=== PATIENT | male | born 1995 | race Hispanic/Latino ===

== ENCOUNTER 2019-09-22 20:39 | Emergency (ER) | payer SELFPAY ==
[2019-09-22] MEDS ORDERED: ONDANSETRON 4 MG/2 ML VIAL ONE (22:08)
[2019-09-22] MEDS ORDERED: NA CHLORIDE 0.9% 1,000 ML ONE (22:08)
[2019-09-22] MEDS ORDERED: MORPHINE 4 MG/ML SYR ONE (22:08)
[2019-09-22 22:27] LABS: Absolute Lymphocytes (CBC) 1.1 K/uL (0.7-4.9); Basophils % 0.1 % (0-1.3); Hematocrit 44.8 % (39.6-49.0); MPV 10.2 fL (7.6-11.3); RBC Red Blood Cell Count 5.11 M/uL (4.33-5.43)
[2019-09-22 22:30] LABS: BUN Blood Urea Nitrogen 20 mg/dL (7-18); Bicarbonate 24 mmol/L (21-32); Glucose Level 124 mg/dL (74-106); Potassium 3.7 mmol/L (3.5-5.1); Sodium Level 135 mmol/L (136-145)
--- NOTE | 2019-09-22 23:27 | ER ---
Nurse's Notes [facility] Name: Guanaco Worrell Age: 24 yrs Sex: Male : 1995 Arrival Date: 09/22/2019 Time: 20:50 Bed 23 Private MD: Diagnosis: S/P Brain trauma. Worsening headache, nausea. 2 new discrete mass lesions within the right frontal and temporal lobes Presentation: 09/22 21:08 Presenting complaint: Patient states: Headache x 2 days, Reports Nausea and dizziness, ca1 Denies vomiting and fever. Reports a skull fracture, admitted in the hospital on last week and discharged yesterday with antibiotics and other meds. Transition of care: patient was not received from another setting of care. Onset of symptoms was September 22, 2019. Risk Assessment: Do you want to hurt yourself or someone else? Patient reports no desire to harm self or others. Initial Sepsis Screen: Does the patient meet any 2 criteria? No. Patient's initial sepsis screen is negative. Does the patient have a suspected source of infection? No. Patient's initial sepsis screen is negative. Care prior to arrival: None. 21:08 Method Of Arrival: Ambulatory ca1 21:08 Acuity: DIAMOND 3 ca1 Historical: - Allergies: 21:23 No Known Allergies; ca1 - PMHx: 21:23 None; ca1 - PSHx: 21:23 None; ca1 - Immunization history:: Adult Immunizations up to date, Flu vaccine is not up to date. - Coronavirus screen:: The patient has NOT traveled to [place], [place], or [place] in the past 14 days. The patient has NOT had contact with known/suspected case of Coronavirus?. - Social history:: Smoking status: Patient reports the use of cigarette tobacco products, denies chronic smoking, but will smoke occasionally. - Ebola Screening: : Patient negative for fever greater than or equal to 101.5 degrees Fahrenheit, and additional compatible Ebola Virus Disease symptoms Patient denies exposure to infectious person Patient denies travel to an Ebola-affected area in the 21 days before illness onset No symptoms or risks identified at this time. Screenin:30 Abuse screen: Denies threats or abuse. Denies injuries from another. Nutritional wh screening: No deficits noted. Tuberculosis screening: No symptoms or risk factors identified. Fall Risk None identified. Assessment: 21:10 General: Appears in no apparent distress. Behavior is calm, cooperative, appropriate wh for age. Pain: Complains of pain in head Pain does not radiate. Pain currently is 8 out of 10 on a pain scale. Pain began 1 day ago. Neuro: Level of Consciousness is awake, alert, obeys commands, Oriented to person, place, time, situation, Appropriate for age Referral Coordinator are equal bilaterally Moves all extremities. Gait is steady, Speech is normal, Facial symmetry appears normal, Pupils are PERRLA, Reports headache skull fracture. Cardiovascular: Heart tones S1 S2 Capillary refill < 3 seconds. Respiratory: Airway is patent Respiratory effort is even, unlabored, Respiratory pattern is regular, symmetrical, Breath sounds are clear bilaterally. GI: Abdomen is flat, non-distended. : No signs and/or symptoms were reported regarding the genitourinary system. EENT: No signs and/or symptoms were reported regarding the EENT system. Derm: Skin is intact, is healthy with good turgor, Skin is pink, warm \T\ dry. normal. Musculoskeletal: Circulation, motion, and sensation intact. 22:23 Reassessment: Patient appears in no apparent distress at this time. No changes from previously documented assessment. Patient and/or family updated on plan of care and expected duration. Pain level reassessed. Patient is alert, oriented x 3, equal unlabored respirations, skin warm/dry/pink. 23:39 Reassessment: Patient appears in no apparent distress at this time. No changes from previously documented assessment. Patient and/or family updated on plan of care and expected duration. Pain level reassessed. Patient is alert, oriented x 3, equal unlabored respirations, skin warm/dry/pink. Report Called to Luanne Paulino RN. 09/23 00:30 Reassessment: Patient appears in no apparent distress at this time. No changes from previously documented assessment. Patient and/or family updated on plan of care and expected duration. Pain level reassessed. Patient is alert, oriented x 3, equal unlabored respirations, skin warm/dry/pink. Medical Records and discharge instructions together with the CD Scans were returned to the mother. Vital Signs: 09/22 21:08 BP 141 / 87; Pulse 54; Resp 19 S; Temp 98.2(O); Pulse Ox 100% on R/A; Weight 77.56 kg ca1 (R); Height 5 ft. 6 in. (167.64 cm) (R); Pain 6/10; 22:29 BP 129 / 84; Pulse 45; Resp 16; Pulse Ox 96% on R/A; wh 23:40 BP 124 / 75; Pulse 75; Resp 18; Pulse Ox 96% on R/A; 02 00:31 BP 126 / 73; Pulse 44; Resp 18; Temp 98.4; Pulse Ox 96% ; 09/22 21:08 Body Mass Index 27.60 (77.56 kg, 167.64 cm) [facility] ED Course: 09/22 20:50 Patient arrived in ED. na 21:08 Mendoza Guthrie MD is Attending Physician. pkl 21:08 Arm band placed on right wrist. Antipyretics given from triage as ordered by an ER [facility] provider. 21:16 Gabriel Huang is Primary Nurse. 21:22 Triage completed. [facility] 21:30 Patient has correct armband on for positive identification. Placed in gown. Bed in low wh position. Call light in reach. Side rails up X 1. environmental monitoring specialist on. Pulse ox on. NIBP on. 21:30 EKG done, by ED staff, reviewed by Mendoza Guthrie MD. 21:45 Inserted saline lock: 20 gauge in right antecubital area, using aseptic technique. Blood collected. 02 00:31 No provider procedures requiring assistance completed. Patient transferred, IV remains in place. 05:59 CT Head Brain wo Cont In Process Unspecified. EDMS Administered Medications: 09/22 22:05 Drug: NS 0.9% 1000 ml Route: IV; Rate: 125 ml/hr; Site: right antecubital; 09/23 00:33 Follow up: Response: No adverse reaction; IV Status: Infusion continued upon transfer 09/22 22:07 Drug: morphine 4 mg Route: IVP; Site: right antecubital; 09/23 00:32 Follow up: Response: No adverse reaction; Pain is decreased; RASS: Alert and Calm (0) 09/22 22:09 Drug: Zofran 4 mg Route: IVP; Site: right antecubital; 09/23 00:32 Follow up: Response: No adverse reaction; Nausea is decreased Outcome: 09/22 23:26 ER care complete, transfer ordered by MD. cardona 09/23 00:31 Transferred by ground EMS to [facility], Transfer form completed. Note: Report Called to Luanne Paulino RN and [facility] Condition: stable Instructed on the need for transfer. 00:33 Patient left the ED. Signatures: Dispatcher [employer] EDMendoza Tang MD MD pkl Anderson, Nyra na Habalo, Winsy Selam De La Paz RN RN ca1 Corrections: (The following items were deleted from the chart) 09/22 21:24 21:23 BP 141 / 87; Pulse 54bpm; Resp 19bpm; Spontaneous; Pulse Ox 100% RA; Temp 98.2F ca1 Oral; 77.56 kg Reported; Height 5 ft. 6 in. Reported; BMI: 27.6; Pain 6/10; ca1
--- NOTE | 2019-09-22 23:28 | EDPHYS ---
Physician Documentation [facility] Name: Guanaco Worrell Age: 24 yrs Sex: Male : 1995 Arrival Date: 09/22/2019 Time: 20:50 Bed 23 Private MD: ED Physician Mendoza Guthrie HPI: 09/22 22:12 This 24 yrs old Male presents to ER via Ambulatory with complaints of Neck pkl Pain. 22:12 The patient complains of pain to the forehead and right yarsani. The patient describes pkl the headache as constant. Onset: The symptoms/episode began/occurred 2 day(s) ago. Associated signs and symptoms: Pertinent positives: dizziness, nausea. Patient was transferred by helicopter to [facility] in [place] after falling off a motorized skateboard. Patient sustained fracture right temporal bone. Cerebral contusion. Subdural hematoma. Partial facial nerve palsy. Patient discharged yesterday. Mother brought patient home last night, with instructions to follow up with Neurosurgery and ENT in [place]. Historical: - Allergies: 21:23 No Known Allergies; ca1 - PMHx: 21:23 None; ca1 - PSHx: 21:23 None; ca1 - Immunization history:: Adult Immunizations up to date, Flu vaccine is not up to date. - Coronavirus screen:: The patient has NOT traveled to [place], [place], or [place] in the past 14 days. The patient has NOT had contact with known/suspected case of Coronavirus?. - Social history:: Smoking status: Patient reports the use of cigarette tobacco products, denies chronic smoking, but will smoke occasionally. - Ebola Screening: : Patient negative for fever greater than or equal to 101.5 degrees Fahrenheit, and additional compatible Ebola Virus Disease symptoms Patient denies exposure to infectious person Patient denies travel to an Ebola-affected area in the 21 days before illness onset No symptoms or risks identified at this time. ROS: 22:12 Eyes: Negative for injury, pain, redness, and discharge, ENT: Negative for injury, pkl pain, and discharge, Neck: Negative for injury, pain, and swelling, Cardiovascular: Negative for chest pain, palpitations, and edema, Respiratory: Negative for shortness of breath, cough, wheezing, and pleuritic chest pain, Abdomen/GI: Negative for abdominal pain, nausea, vomiting, diarrhea, and constipation, Back: Negative for injury and pain, : Negative for injury, bleeding, discharge, and swelling, MS/Extremity: Negative for injury and deformity, Skin: Negative for injury, rash, and discoloration. 22:12 Neuro: Positive for dizziness, increasing headache and nausea. Exam: 22:12 Head/Face: Normocephalic, atraumatic. Eyes: Pupils equal round and reactive to light, pkl extra-ocular motions intact. Lids and lashes normal. Conjunctiva and sclera are non-icteric and not injected. Cornea within normal limits. Periorbital areas with no swelling, redness, or edema. ENT: Nares patent. No nasal discharge, no septal abnormalities noted. Tympanic membranes are normal and external auditory canals are clear. Oropharynx with no redness, swelling, or masses, exudates, or evidence of obstruction, uvula midline. Mucous membranes moist. Neck: Trachea midline, no thyromegaly or masses palpated, and no cervical lymphadenopathy. Supple, full range of motion without nuchal rigidity, or vertebral point tenderness. No Meningismus. Chest/axilla: Normal chest wall appearance and motion. Nontender with no deformity. No lesions are appreciated. Cardiovascular: Regular rate and rhythm with a normal S1 and S2. No gallops, murmurs, or rubs. Normal PMI, no JVD. No pulse deficits. Respiratory: Lungs have equal breath sounds bilaterally, clear to auscultation and percussion. No rales, rhonchi or wheezes noted. No increased work of breathing, no retractions or nasal flaring. Abdomen/GI: Soft, non-tender, with normal bowel sounds. No distension or tympany. No guarding or rebound. No evidence of tenderness throughout. Back: No spinal tenderness. No costovertebral tenderness. Full range of motion. Skin: Warm, dry with normal turgor. Normal color with no rashes, no lesions, and no evidence of cellulitis. MS/ Extremity: Pulses equal, no cyanosis. Neurovascular intact. Full, normal range of motion. 22:12 Neuro: Orientation: appropriate for stated age, Mentation: is normal, Cranial nerves: grossly normal, Motor: is normal. Vital Signs: 21:08 BP 141 / 87; Pulse 54; Resp 19 S; Temp 98.2(O); Pulse Ox 100% on R/A; Weight 77.56 kg ca1 (R); Height 5 ft. 6 in. (167.64 cm) (R); Pain 6/10; 22:29 BP 129 / 84; Pulse 45; Resp 16; Pulse Ox 96% on R/A; 23:40 BP 124 / 75; Pulse 75; Resp 18; Pulse Ox 96% on R/A; 09/23 00:31 BP 126 / 73; Pulse 44; Resp 18; Temp 98.4; Pulse Ox 96% ; 09/22 21:08 Body Mass Index 27.60 (77.56 kg, 167.64 cm) ca1 MDM: 09/22 21:08 Patient medically screened. pkl 23:16 Data reviewed: vital signs, nurses notes, lab test result(s), radiologic studies, CT pkl scan. 09/22 21:51 Order name: CBC with Diff pkl 09/22 21:51 Order name: Chem 7 pkl 09/22 21:54 Order name: CT Head Brain wo Cont pkl 09/22 22:29 Order name: CBC with Automated Diff; Complete Time: 22:44 EDMS 09/22 22:30 Order name: Basic Metabolic Panel; Complete Time: 22:44 EDMS Administered Medications: 22:05 Drug: NS 0.9% 1000 ml Route: IV; Rate: 125 ml/hr; Site: right antecubital; 09/23 00:33 Follow up: Response: No adverse reaction; IV Status: Infusion continued upon transfer 09/22 22:07 Drug: morphine 4 mg Route: IVP; Site: right antecubital; 09/23 00:32 Follow up: Response: No adverse reaction; Pain is decreased; RASS: Alert and Calm (0) 09/22 22:09 Drug: Zofran 4 mg Route: IVP; Site: right antecubital; 09/23 00:32 Follow up: Response: No adverse reaction; Nausea is decreased Disposition: 09/22/19 23:26 Transfer ordered to [facility]. Diagnosis is S/P Brain trauma. Worsening headache, nausea. 2 new discrete mass lesions within the right frontal and temporal lobes. - Reason for transfer: Higher level of care. - Accepting physician is Dr Michele Child. - Condition is Stable. - Problem is new. - Symptoms have worsened. Signatures: Dispatcher [employer] EDMS Guthrie, Pin, MD MD pkl Fabioluz Gabriel wh Ana Cristina, Selam RN RN ca1 Corrections: (The following items were deleted from the chart) 00:33 09/22 23:26 09/22/2019 23:26 Transfer ordered to [facility]. Diagnosis is S/P Brain trauma. Worsening headache, nausea. 2 new discrete mass lesions within the right frontal and temporal lobes. Reason for transfer: Higher level of care. Accepting physician is Dr Michele Child. Condition is Stable. Problem is new. Symptoms have worsened. pkl
[2019-09-23 00:52] VITALS: O2SAT 96
[2019-09-23 00:55] VITALS: BP 126/73; TEMP 98.4
--- NOTE | 2019-09-23 10:16 | RAD REPORT ---
EXAM DESCRIPTION: Head Brain Wo Cont CLINICAL HISTORY: 24 years Male, HEADACHE TECHNIQUE: 5 mm axial images were obtained along with 3 mm reformatted coronal and sagittal images. This exam was performed according to our departmental dose-optimization program, which includes autom ated exposure control, adjustment of the mA and/or kV according to patient size and/or use of iterati ve reconstruction technique. COMPARISON: None. FINDINGS: No acute abnormal extracerebral fluid collections are demonstrated. The cortical sulci, ventricles, and cisterns are within normal limits. There is a mass lesion within the right temporal lobe which multiple areas of increased density likel y representing calcifications. The mass measures 6.6 x 5.3 x 4.2 cm. There is a similar-appearing mass in the base of the right frontal lobe measuring 2.2 x 2.1 x 3.0 cm. Further evaluation with a contrast-enhanced MRI recommended. The visualized portions of the paranasal sinuses and mastoid air cells are clear. There is a moderate-sized scalp hematoma posteriorly along the midline and on the right. IMPRESSION: 1. 2 discrete mass lesions identified within the right frontal and temporal lobes. Neopl asms should be considered. Further evaluation with a contrast-enhanced MRI recommended. 2. Moderate-sized scalp hematoma. Electronically signed by: Allan Ledbetter MD 09/22/2019 10:38 PM BUSINESS INTELLIGENCE ENGINEER Due to temporary technical issues with the PACS/Fluency reporting system, reports are being signed by the in house radiologist as a courtesy to ensure prompt reporting. The interpreting radiologist is f ully responsible for the content of the report.
--- NOTE | 2019-09-23 12:27 | EKG ---
Test Date: 2019-09-22 Test Time: 21:26:32 Cigar Head Puncher: MICHELLE MEASUREMENT RESULTS: Intervals: Rate: 46 ME: 134 QRSD: 98 QT: 466 QTc: 407 Grant: P: 76 ME: 134 QRS: 87 T: 39 INTERPRETIVE STATEMENTS: Marked sinus bradycardia with sinus arrhythmia Abnormal ECG No previous ECG available for comparison Electronically Signed On 09-23-19 12:26:26 DOCTOR OF PHARMACY by Terrell Acharya
== END 2019-09-23 00:33 | disposition short-term general hospital (02) ==
LOC: ER 20:39
DX: R11.0 Nausea (principal); G93.9 Disorder of brain, unspecified; Z87.820 Personal history of traumatic brain injury; Z72.0 Tobacco use
CPT/HCPCS: 36415; 70450; 80048; 85025; 93005; 96361; 96374; 96375; 99285; J2405; J7030

== ENCOUNTER 2020-10-12 16:27 | Emergency (ER) | payer OTHER, SELFPAY ==
--- OUTSIDE RECORDS SUMMARY | 2020-10-12 16:32 | XMS REPORT | Continuity of Care Document ---
:1995 Author Organization [facility] t Address [address] [place] [address] Care Team Providers Name Role Phone Van Leslie Attending Clinician Júnior Child Admitting Clinician Problems Condition Condition Condition Status Onset Resolution Last Treating Co mments Source Name Details Category Date Date Treatment Clinician Date SUBDURAL Diagnosis Active 2019-10-01 M emoria HEMATOMA 2-03 21:45:00 l SUBDURAL 00:00: Samuel n HEMATOMA 00 Active 2019 [facility] HEADACHE Diagnosis Active 2019-10-01 M emoria 21:45:00 l HEADACHE Samuel n Active [facility] Allergies, Adverse Reactions, Alerts Allergy Allergy Status Severity Reaction(s) Onset Inactive Treating Comm ents Source Name Type Date Date Clinician No Known No Known Active Orlinori a Medicati Medicati l on on Juan Allergie Allergie s s Social History Social Habit Start Date Stop Date Quantity Comments Source Social History 2019-09-24 2019-09-24 [facility] 00:25:02 00:25:02 Medications Ordered Filled Start Stop Current Ordering Indication Dosage Frequency Signature Comments Components Source Medication Medication Date Date Medication? Clinician (SIG) Name Name sennosides, Yes 8.6 mg = 1 Memoria SHELTER 8.6 MG 2-07 tab, PO, l Oral Tablet 15:34: Q12H, X 7 H ermann 00 day, # 14 tab, 0 Refill(s) tramadol Yes 50 mg = 1 Murtaza denise hydrochlori 2-07 tab, PO, l de 50 MG 15:34: Q6H, PRN Yin nn Oral Tablet 00 Pain Score 7-10, X 10 day, # 30 tab, 0 Refill(s) Ciprofloxac Yes 4 drp, Murtaza denise in 3 MG/ML 2-07 RIGHT EAR, l / 15:34: BID, X 7 Juan Dexamethaso 00 day, # 8 ne 1 MG/ML mL, 0 Otic Refill(s) Suspension [Ciprodex] Docusate Yes 100 mg = 1 Mem oria Sodium 100 2-07 cap, PO, l MG Oral 15:34: Q12H, # 14 Herm paco Capsule 00 cap, 0 Refill(s) Levetiracet Yes 500 mg = 1 Memoria am 500 MG 2-07 tab, PO, l Oral Tablet 15:34: Q12H, # 8 H ermann 00 tab, 0 Refill(s) Sodium 0 No 3 gm, 3 Memoria Chloride 2-06 tab, l 1000 MG 19:10: Route: PO, Herm paco Oral Tablet 00 Drug form: TAB, Q8H-05, Dosing Weight 77.727, kg, Start date: 09/25/19 13:10:00 DINING ROOM HELPER, Duration: 30 day, Stop date: 10/25/19 13:00:00 DINING ROOM HELPER, 0 NS 1,000 mL No 1,000 mL, M emoria 09-25 Rate: 75 l 19:00: ml/hr, Juan 00 Infuse over: 13.3 hr, Route: IV, Dosing Weight 77.727 kg, Total Volume: 1,000, Start date: 09/25/19 13:00:00 DINING ROOM HELPER, Duration: 30 day, Stop date: 10/25/19 12:59:00 DINING ROOM HELPER, 1.92, m2, 0 heparin 0 No Notes: Memoria sodium, 2-05 porcine l porcine 22:00: heparin Brick 2500 UNT/ML 00 Injectable Solution Water 1000 0 No 914.5 mL, Me moria MG/ML 2 Rate: 75 l Injectable 20:57: ml/hr, Yin nn Solution 00 Infuse over: 13.3 hr, Route: IV, Dosing Weight 77.727 kg, Total Volume: 1,000, Start date: 09/24/19 14:57:00 DINING ROOM HELPER, Duration: 30 day, Stop date: 10/24/19 14:56:00 DINING ROOM HELPER, For IMU and ICU use only. See Order Comments!! , 1.92, m2, 0 Compazine 2019-0 No Notes: Memori a 2-05 (Same as: l 17:36: Compazine) Diphenhydra 2019-0 No Notes: Murtaza denise mine 2-05 (Same as: l 17:36: Benadryl) Compazine 0 No 10 mg, Memori a 2-05 Route: IM, l 17:34: Drug form: INJ, ONCE, Dosing Weight 77.727, kg, Start date: 09/24/19 11:34:00 DINING ROOM HELPER, Stop date: 09/24/19 11:34:00 DINING ROOM HELPER Ketorolac No 15 mg, 1 Murtaza denise 2-05 mL, Route: l 17:34: IVP, Drug form: INJ, ONCE, Dosing Weight 77.727, kg, Start date: 09/24/19 11:34:00 DINING ROOM HELPER, Stop date: 09/24/19 11:34:00 DINING ROOM HELPER, 0 Magnesium No Notes: Memori a Sulfate 2-05 WASTE: F/P l 17:34: - Sink; E Juan 00 - Municipal Trash Bin Miralax 0 No Notes: Memoria 2-05 Dissolve l 15:00: in 8 oz of water or juice. (Same as: Miralax) Lidocaine No 1 patch, Murtaza denise 0.05 MG/MG 2-05 Route: l Transdermal 15:00: TOP, Samuel n Patch 00 Daily, Drug form: FILM, Start date: 09/24/19 9:00:00 DINING ROOM HELPER, Duration: 30 day, Stop date: 10/23/19 9:00:00 DINING ROOM HELPER remove 0 No Notes: Memoria patch 2-05 Remove l 03:00: patch 12 Juan 00 hours after applicatio n each day. Compazine 0 No Notes: Memori a 2-05 (Same as: l 00:45: Compazine) tramadol 0 No 100 mg, 2 Murtaza denise hydrochlori 2-05 tab, l de 50 MG 00:41: Route: PO, Her dumont Oral Tablet 00 Drug form: TAB, Q6H, Dosing Weight 77.727, kg, PRN Pain Score 7-10, Priority: NOW, Start date: 09/23/19 18:41:00 DINING ROOM HELPER, Duration: 30 day, Stop date: 10/23/19 18:40:00 DINING ROOM HELPER, 0 Water 1000 No 914.5 mL, Me moria MG/ML 09-24 Rate: 50 l Injectable 00:40: ml/hr, Yin nn Solution 00 Infuse over: 20 hr, Route: IV, Dosing Weight 77.727 kg, Total Volume: 1,000, Start date: 09/23/19 18:40:00 DINING ROOM HELPER, Duration: 30 day, Stop date: 10/23/19 18:39:00 DINING ROOM HELPER, For IMU and ICU use only. See Order Comments!! , 1.92, m2, 0 Ciprofloxac No Notes: Murtaza denise in 3 MG/ML - (Same As: 23:00: Ciprodex) Brick Dexamethaso 00 ne 1 MG/ML Otic Suspension [Ciprodex] Levetiracet No 500 mg, 1 M emoria am 2-04 tab, l 17:00: Route: PO, Brick 00 Drug form: TAB, Q12H, kg, Start date: 09/23/19 11:00:00 DINING ROOM HELPER, Duration: 30 day, Stop date: 10/23/19 9:00:00 DINING ROOM HELPER, 0 Levetiracet No Notes: Murtaza denise am 2-04 Same as l 15:00: Keppra Juan Mix with 100 mL NS, LR or D5W MEDICATION WASTE Product Size: 500 mg Product Wasted: ___ mg Docusate No Notes: Memoria 2-04 (Same as: l 15:00: Colace) Juan (Do Not Crush) sennosides, No Notes: Murtaza denise SHELTER 2-04 (Same as: l 15:00: Senokot) Brick 00 Lidocaine No Notes: Memori a 0.05 MG/MG 2-04 Apply only l Transdermal 15:00: once for He rmann Patch 00 up to 12 hours in a 24-hour period (12 hours on and 12 hours off). (Same as: Lidoderm) "Remove old patch before applicatio n of new patch" Saline No Notes: Memoria Flush 0.9% 2-04 Same as: l 15:00: BD Posiflush Sterile Sodium 2020-0 No 1,000 mL, Memori a Chloride 2-04 Rate: 50 l 0.9% IV 12:21: ml/hr, Brick 1,000 mL 00 Infuse over: 20 hr, Route: IV, Total Volume: 1,000, Start date: 09/23/19 6:21:00 DINING ROOM HELPER, Duration: 30 day, Stop date: 10/23/19 6:20:00 DINING ROOM HELPER, 2.63, m2, 0 Acetaminoph 2019-0 No Notes: Do M emoria en 2-04 not exceed l 12:21: 4 gm/day. Brick (Same as: Tylenol) Acetaminoph 2019-0 No Notes: Do M emoria en 325 MG / 2-04 not exceed l Hydrocodone 12:21: 4gm/day of Juan Bitartrate 00 acetaminop 10 MG Oral hen. Tablet (Same as: [place]ishers 325/10) Morphine 2019-0 No Notes: Memoria 2-04 (Same l 12:21: as:MORPhin e Sulfate) Levetiracet 2019-0 No 1,000 mg, M emoria am 2-04 Route: l 12:21: IVPB, Juan ONCE, kg, Start date: 09/23/19 6:21:00 DINING ROOM HELPER, Stop date: 09/23/19 6:21:00 DINING ROOM HELPER Bisacodyl 2019-0 No Notes: Memori a 2-04 (Same As: l 12:21: Dulcolax, Brick 00 Bisco-Lax) Ondansetron 2019-0 No Notes: Murtaza denise 2-04 (Same as: l 12:21: Zofran) MEDICATION WASTE Product Size: 4 mg Product Wasted: ___ mg Hydralazine 2019-0 No Notes: Murtaza denise 2-04 (Same as: l 12:21: Apresoline ) Push over 5 minutes Labetalol 2019-0 No 10 mg, 2 Murtaza denise 2-04 mL, Route: l 12:21: IVP, Drug form: INJ, Q15Min, kg, PRN Hypertensi on, Start date: 09/23/19 6:21:00 DINING ROOM HELPER, Duration: 3 doses or times, Stop date: Limited # of times, 0 Saline 0 No Notes: Memoria Flush 0.9% - Same as: l 12:21: BD Brick 00 Posiflush Sterile Morphine No 4 mg, Memoria 09-23 Route: l 10:07: IVP, ONCE, Juan 00 kg, Priority: STAT, Start date: 09/23/19 4:07:00 DINING ROOM HELPER, Stop date: 09/23/19 4:07:00 DINING ROOM HELPER Levetiracet No Notes: Murtaza denise am 2-04 Same as l 09:41: Keppra Juan 00 Mix with 100 mL NS, LR or D5W MEDICATION WASTE Product Size: 500 mg Product Wasted: ___ mg Vital Signs Vital Name Observation Time Observation Value Comments Source Respitory Rate 2019-09-26 16:00:00 Memori al Juan Systolic (mm Hg) 2019-09-26 16:00:00 Murtaza rial Brick Diastolic (mm Hg) 2019-09-26 16:00:00 Mem orial Brick Respitory Rate 2019-09-26 15:00:00 Memori al Brick Respitory Rate 2019-09-26 14:00:00 Memori al Juan Systolic (mm Hg) 2019-09-26 14:00:00 Murtaza rial Brick Diastolic (mm Hg) 2019-09-26 14:00:00 Mem orial Brick Systolic (mm Hg) 2019-09-26 13:00:00 Murtaza rial Brick Diastolic (mm Hg) 2019-09-26 13:00:00 Mem orial Brick Temperature Oral (F) 2019-09-25 22:03:00 97.2 F [facility] Juan Temperature Oral (F) 2019-09-24 14:05:00 97.9 F [facility] Brick Height 2019-09-24 00:28:00 167.64 cm [facility] Jaun Weight 2019-09-24 00:28:00 [facility] Brick BMI Calculated 2019-09-24 00:28:00 Memori al Juan Temperature Oral (F) 2019-09-23 23:45:00 98 F [facility] Brick Heart Rate 2019-09-23 18:23:00 [facility] Juan Heart Rate 2019-09-23 07:23:00 [facility] B[facility] Procedures This patient has no known procedures. Encounters Start End Encounter Admission Attending Care Care Encounter Source Date/Time Date/Time Type Type Clinicians Facility Department ID 2019-09-23 2019-09-26 Outpatient An[facility] [id number] 01:20:00 11:10:00 Huimahn 00 Van 2019-09-23 2019-09-23 Inpatient E [id number] 06:21:00 01:20:00 Results Test Description Test Time Test Comments Results Result Comments Source CHEM PANEL 2019-09-26 12 [facility] Yin nn 09:27:00 CHEM PANEL 2019-09-26 0.62 [facility] Yin nn 09:27:00 CHEM PANEL 2019-09-26 135 [facility]in nn 09:27:00 CHEM PANEL 2019-09-26 3.8 [facility] Yin nn 09:27:00 CHEM PANEL 2019-09-26 105 [facility]in nn 09:27:00 CHEM PANEL 2019-09-26 20 [facility] nn 09:27:00 CHEM PANEL 2019-09-26 8.7 [facility] Yin nn 09:27:00 CHEM PANEL 2019-09-26 13.8 [facility] Yin nn 09:27:00 CHEM PANEL 2019-09-26 138 [facility] Yin nn 09:27:00 HEMATOLOGY 2019-09-26 6.0 [facility] nn 09:27:00 HEMATOLOGY 2019-09-26 4.89 [facility] Yin nn 09:27:00 HEMATOLOGY 2019-09-26 15.0 [facility] Yin nn 09:27:00 HEMATOLOGY 2019-09-26 43.3 [facility] Yin nn 09:27:00 HEMATOLOGY 2019-09-26 88.5 [facility] Yin nn 09:27:00 HEMATOLOGY 2019-09-26 09:27:00 Test Item Value Reference Range Interpretation Comme nts MCH (test code = MCH) 30.7 pg 27.0-31.0 [facility] XrqrotgLWHOMLBGBS6416-30-67 09:27:0034.7[facility]ann[facility]OLOGY 2019-09-26 09:27:0013.5[facility] MzawmfrJDHVDSPKYN8390-71-16 09:27:66254Jzucfxhr QmibahyFOFOAEGXIB5774-64-38 09:27:0010.5[facility] TlnhhddIDLGLNCEUQ3822-73-75 09:27:0064.9[facility] CptlrudGRIIKQQJMS1341-52-17 09:27:0020.8[facility] Brick WFZNZELAWL0435-82-62 09:27:0010.4[facility] SvypmlgOKUAWQZHDA0977-04-43 09:27:00 3.8[facility] FhkibavBZEUNWBQIW6880-34-16 09:27:000.1[facility]annHEMATOLOGY 2019-09-26 09:27:003.9[facility] DafwfddJXHCTUKGBH1347-28-30 09:27:001.2[facility] UwdbijyRQCMFDLDMA0019-87-25 09:27:000.6[facility] TygoxhsJCESLBDYSR5731-21-49 09:27:000.2[facility] HermannCHEM VXRYR5329-47-52 09:27:0060[facility] HermannCHEM FEZKW6374-23-27 00:26:0085[facility] HermannCHEM MGMJN0974-02-97 00:26:0014 [facility]annCHE[facility] EBJZT4821-52-42 00:26:000.73[facility]annCHEM PANEL 2019-09-26 00:26:57690Mskhjwht HermannCHEM OBORV6763-24-51 00:26:004.0[facility] HermannCHEM JRJPY7997-32-92 00:26:73959Pbwhbgmd HermannCHEM NXIWK0517-22-04 00:26:0024[facility] HermannCHEM KRPJL5207-54-38 00:26:008.4[facility] HermannCHEM UOTFA7303-37-67 00:26:008.0[facility]annCHEM ZDNCK6230-78-88 00:26:65342 [facility]ann[facility] FUFQP0913-15-40 18:01:0080[facility]annCHEM PANEL 2019-09-25 18:01:0014[facility] HermannCHEM MJCNZ9860-06-12 18:01:000.77[facility]annCHEM HXGHG2816-93-14 18:01:45298Ulrednpx HermannCHEM PMAYQ6080-21-19 18:01:003.9[facility] HermannCHEM PUREB1963-95-60 18:01:69803Dqewnwgc HermannCHEM IEPUL9297-21-80 18:01:0024[facility] HermannCHEM ROYIB3176-38-68 18:01:007.9 [facility]annCHE[facility] AHHGB1607-09-65 18:01:009.9[facility] HermannCHEM PANEL 2019-09-25 18:01:05465Fawlntbc CzjtluzXQHJYHMOST6076-92-36 09:57:003.6[facility] UitqfqkCQBJWJNTAN2573-01-53 09:57:001.3[facility] QknvmosBGGNKHHRTC2237-23-31 09:57:000.7[facility] EusscmoBGTTRBKOTL4089-98-61 09:57:000.2[facility] Brick UYVOZPIKYK8008-43-82 09:57:005.8[facility] PyvbmrfTRUHMQJFRX0442-61-62 09:57:00 4.82[facility] YelzmmhDARFKJLFPL0561-11-03 09:57:0014.6[facility] HermannHEMATOLOGY 2019-09-25 09:57:0042.6[facility] SnhyumbSXWMVLOPWY1401-48-16 09:57:0088.5[facility] TfjpuluFLUTMYHDTE9121-90-21 09:57:00 Test Item Value Reference Range Interpretation Comments MCH (test code = MCH) 30.4 pg 27.0-31.0 [facility] CsnadcjSWLZTMCUDO4955-09-16 09:57:0034.3[facility] HermannHEMATOLOGY 2019-09-25 09:57:0013.6[facility] TldjdonJXYUXZKJHG2475-23-78 09:57:55271Cyhxednl BdguevbLJEPJJWPTJ6310-52-74 09:57:009.8[facility] UwgphwsHXYSAPZLLA4426-24-73 09:57:0061.9[facility] HwhkowgPXNXNNSFCT5669-13-90 09:57:0022.3[facility] VHMGQJYAOJ0521-45-45 09:57:0012.4[facility] ThpkileCKCELNQSHO4476-14-33 09:57:00 3.2[facility] DjoitzqCSYLKIEIVG5930-32-62 09:57:000.2[facility]annHEMATOLOGY 2019-09-24 07:51:006.4[facility] HwepdhwAIWNMCYXOQ8126-02-92 07:51:004.82[facility] UvppwicBZCNELRGUB5197-44-25 07:51:0014.6[facility] VwcmyfjRECAPVNHAP1696-16-45 07:51:0042.2[facility] KgzqncvLWITJQWXAW1598-63-49 07:51:0087.7[facility]rick HOHXVPMDOI2918-40-01 07:51:00 Test Item Value Reference Range Interpretation Comments MCH (test code = MCH) 30.3 pg 27.0-31.0 [facility] WsonayaSUTWKOMEZZ7199-60-19 07:51:0034.6[facility] HermannHEMATOLOGY 2019-09-24 07:51:0013.6[facility] TvoydznBVCLYABJLY8308-48-04 07:51:39229Eauonfya AwbzjzwWRJLWYXUDJ0084-75-06 07:51:009.6[facility] ZpmyondDMKLECNKGZ7272-84-52 07:51:0061.6[facility] NqppytyBEIAUAUZXP7802-35-69 07:51:0020.8[facility] Juan RLMDLIHBOV7547-99-24 07:51:0015.5[facility] EqurdafJISUUMTHUE9415-67-04 07:51:00 2.0[facility] GvwlhnvSAKYRDCCQF6532-38-37 07:51:000.1[facility]annHEMATOLOGY 2019-09-24 07:51:003.9[facility] GqagxstWQLUDJNIFW9987-99-78 07:51:001.3[facility] YgheeusKCNFRRPTAQ1486-27-07 07:51:001.0[facility] HualwruVFZZKZJIIZ4821-60-60 07:51:000.1[facility] HermannBLOOD BANK GHTFWPF0084-84-06 10:11:00Negative (09/23/19 4:11 AM)[facility] IakjcigMPHDSOKXCD2307-89-05 10:11:00Negative *NA*(09/23/19 4:11 AM)[facility] AvyvzbiRKGROPJPKH6231-33-07 10:00:59 Test Item Value Reference Range Interpretation Comments INR (test code = INR) 0.97 1 0.85-1.17 [facility]eg[facility]YIGCPQJVI4061-95-27 10:00:59 Test Item Value Reference Range Interpretation Comments PTT (test code = PTT) 26.1 s 22.9-35.8 [facility]swxqqvPMLDDNUYSU3136-37-58 10:00:59 Test Item Value Reference Range Interpretation Comments ACT (TEG) Rapid (test code = ACT (TEG) 113 s 86-118 Rapid) [facility]viewJuceucdBOVNTYYDPS1947-57-70 10:00:59 Test Item Value Reference Range Interpretation Comments Split Point Rapid (test code = Split 0.6 min Point Rapid) [facility]viewKzpjzpyVVVDEJTIRZ6104-69-31 10:00:59 Test Item Value Reference Range Interpretation Comments R-time Rapid (test code = R-time 0.7 min 0.4-0.7 Rapid) [facility]viewSbsgyypLUOWSTXRSI6678-90-57 10:00:59 Test Item Value Reference Range Interpretation Comments K-time Rapid (test code = K-time 1.4 min 0.6-2.3 Rapid) [facility]viewJkwqjxhWYCRXUMHKF3835-49-97 10:00:59 Test Item Value Reference Range Interpretation Comments Angle Rapid (test code = Angle 74 degrees 64-80 Rapid) [facility]viewGmfkrxcIFFDPCOYZD3474-73-78 10:00:59 Test Item Value Reference Range Interpretation Comments Max Amplitude Rapid (test code = Max 67 mm 52-71 Amplitude Rapid) [facility]viewNvzlrclCKSRTFNUAK4941-00-71 10:00:5910.1[facility] 2019-09-23 10:00:591.9[facility] KdjvrzkOEHQADSCLJ0556-34-24 10:00:59 Test Item Value Reference Range Interpretation Comments PT (test code = PT) 12.9 s 12.0-14.7 [facility]
[2020-10-12] MEDS ORDERED: KETOROLAC 30 MG/ML INJ ONE (17:01)
[2020-10-12] MEDS ORDERED: CYCLOBENZAPRINE 10 MG TAB ONE (17:01)
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
[2020-10-12 18:55] VITALS: TEMP 98.4
[2020-10-12 18:57] VITALS: BP 125/95; O2SAT 99
== END 2020-10-12 18:48 | disposition home or self-care (01) ==
LOC: ER 16:27
DX: M54.2 Cervicalgia (principal); V49.49XA Driver injured in collision with other motor vehicles in traffic accident, initial encounter; F17.210 Nicotine dependence, cigarettes, uncomplicated
CPT/HCPCS: 70450; 72125; 96372; 99284